=== PATIENT | female | born 1955 | race African-American/Black ===

== ENCOUNTER 2018-01-26 06:35 | Emergency (ER) | payer SELFPAY ==
[~2018-01-26] VITALS: Ht 162.6 cm; Wt 90.7 kg
[2018-01-26 07:40] VITALS: BP 175/78
[2018-01-26] MEDS ORDERED: KETOROLAC TROMETH 60MG/2ML VIAL IM ONE (08:30)
[2018-01-26] MEDS ORDERED: HYDROcodone-ACET 10/325MG TAB PO ONE (08:30)
[2018-01-26 09:09] LABS: Urine Bacteria FEW /hpf (None Seen); Urine Blood Negative /uL (Negative); Urine Specific Gravity 1.014 (1.001-1.035); Urine WBC 19 /hpf (0 - 5)
== END 2018-01-26 09:39 | disposition home or self-care (01) ==
LOC: ER 06:38
DX: N39.0 Urinary tract infection, site not specified (principal); E11.9 Type 2 diabetes mellitus without complications; I10 Essential (primary) hypertension
CPT/HCPCS: 81001; 96372; 99283; J1885